=== PATIENT | male | born 1960 | race American Indian/Alaskan Native ===

== ENCOUNTER 2017-04-03 17:51 | Emergency (ER) | payer MEDICAID ==
[2017-04-03] MEDS ORDERED: Sodium Chloride 0.9% 1,000 ML IV ONE (18:43)
[2017-04-03] MEDS ORDERED: Sodium Chloride 0.9% 1,000 ML ONE (18:55)
[2017-04-03 19:08] LABS: BASO # 0.1 K/uL (0.0-0.2); BASO % 0.8 % (0.0-2.0); EOS # 0.4 K/uL (0.0-0.7); EOS % 5.6 % (0.0-4.0); HEMATOCRIT 48.6 % (35.0-51.0); LYMPH # 2.2 K/uL (1.0-4.3); LYMPH % 28.2 % (20.0-40.0); MEAN CORPUSCULAR HGB CONC 33.3 g/dL (33.0-37.0); MONO # 0.6 K/uL (0.0-0.8); MONO % 7.9 % (0.0-10.0); NRBC % 0.1 % (0.0-2.0); RED CELL DISTRIBUTION WIDTH 14.9 % (11.5-14.5); WHITE BLOOD COUNT 7.8 K/uL (4.8-10.8)
[2017-04-03 19:14] LABS: CHLORIDE 101 mmol/L (98-107); POTASSIUM 5.3 mmol/L (3.6-5.2); SODIUM 139 mmol/L (132-148)
[2017-04-03 19:16] LABS: ALB/GLOB RATIO 1.5 (1.0-2.1); AST/SGOT 16 U/L (17-59); BILIRUBIN,TOTAL 0.8 mg/dL (0.2-1.3); CARBON DIOXIDE 30 mmol/L (22-30); GFR AFRICAN-AMERICAN > 60; TOTAL PROTEIN 6.6 g/dL (6.3-8.3)
[2017-04-03 19:17] LABS: ALKALINE PHOSPHATASE 80 U/L (38-126); ALT/SGPT 19 U/L (21-72); BLOOD UREA NITROGEN 10 mg/dL (9-20); CALCIUM 9.4 mg/dl (8.6-10.4); GLUCOSE,RANDOM 87 mg/dL (75-110); MAGNESIUM 1.9 mg/dL (1.6-2.3)
[2017-04-03] MEDS ORDERED: Magnesium Sulfate 1 gm in D5W 1 GM/100 ML BAG IVPB ONE ×2 (19:56→20:03)
[2017-04-03] MEDS ORDERED: Apap-Butalbital-Caffeine 325-50-40mg Tab PO STA (19:57)
[2017-04-03 19:58] VITALS: O2SAT 98
[2017-04-03] MEDS ORDERED: Apap-Butalbital-Caffeine 325-50-40mg Tab ONE (20:03)
[2017-04-03] MEDS ORDERED: Dexamethasone 4 mg/1 ml IVP STA (21:23)
[2017-04-03] MEDS ORDERED: Enalaprilat 2.5 MG/2 ML IVP STA (21:23)
[2017-04-03 21:46] VITALS: RESP 18
[2017-04-03] MEDS ORDERED: Enalaprilat 2.5 MG/2 ML ONE (22:07)
[2017-04-03] MEDS ORDERED: Dexamethasone 4 mg/1 ml ONE (22:07)
--- NOTE | 2017-04-03 22:43 | C.PDOC ---
Time Seen by Provider: 04/03/17 18:17 Chief Complaint (Nursing): Headache History Per: Patient, Family Onset/Duration Of Symptoms: Days (about 3 weeks), Persistent Current Symptoms Are (Timing): Still Present Severity: Moderate Quality: "Pain" Associated Symptoms: Nausea Additional History Per: Prior Records Past Medical History Reviewed: Historical Data, Nursing Documentation, Vital Signs Vital Signs: Last Vital Signs Temp 97.8 F 04/03/17 20:38 Pulse 82 04/03/17 21:44 Resp 18 04/03/17 21:44 BP 113/77 04/03/17 22:17 Pulse Ox 98 04/03/17 21:44 - Medical History PMH: HTN, Migraine Family History: States: Unknown Family Hx - Social History Hx Alcohol Use: No Hx Substance Use: No - Immunization History Hx Tetanus Toxoid Vaccination: No Hx Influenza Vaccination: No Hx Pneumococcal Vaccination: No Review Of Systems Except As Marked, All Systems Reviewed And Found Negative. Constitutional: Negative for: Fever, Weakness ENT: Positive for: Ear Pain, Nose Congestion Cardiovascular: Negative for: Chest Pain Respiratory: Positive for: Cough. Negative for: Shortness of Breath, Hemoptysis Gastrointestinal: Positive for: Nausea. Negative for: Abdominal Pain Musculoskeletal: Negative for: Neck Pain Skin: Negative for: Rash Neurological: Positive for: Headache. Negative for: Weakness, Numbness, Seizures, Altered Mental Status Physical Exam - Physical Exam Appears: Non-toxic, No Acute Distress Skin: Normal Color, Warm, Dry, No Rash Head: Atraumatic, Normacephalic Eye(s): bilateral: PERRL, EOMI Ear(s): Bilateral: TM Obscured By Wax Throat: Normal Neck: Normal ROM, Supple Cardiovascular: Rhythm Regular Respiratory: Normal Breath Sounds, No Accessory Muscle Use Gastrointestinal/Abdominal: Soft, No Tenderness Back: No CVA Tenderness Extremity: Normal ROM Neurological/Psych: Oriented x3, Normal Speech, Normal Cognition, Normal Motor, Normal Sensation ED Course And Treatment - Laboratory Results Result Diagrams: 04/03/17 19:03 04/03/17 19:03 O2 Sat by Pulse Oximetry: 98 Pulse Ox Interpretation: Normal - Radiology CXR: Interpreted by Me, Viewed By Me CXR Interpretation: Yes: No Acute Disease - CT Scan/US CT head Other Rad Studies (CT/US): Read By Radiologist, Radiology Report Reviewed CT/US Interpretation: NAD Progress - Interventions Interventions:: Observation, Intravenous fluid - Medications Administered Intravenous: Antiemetic, Corticosteroid, NSAID - Data Reviewed Data Reviewed: Lab, Diagnostic imaging, Old records - Patient Status Patient status: Mostly improved - Continuity of Care Discussed patient case with:: Patient, Family-HIPPA compliant, ED Nurse - Patient Plan Patient Plan: Discharge, F/U with PCP, Continue present meds Disposition Counseled Patient/Family Regarding: Studies Performed, Diagnosis, Need For Followup, Rx Given - Disposition Disposition: HOME/ ROUTINE Disposition Time: 22:44 Condition: IMPROVED Additional Instructions: Follow up with your doctor for further evaluation and treatment. Return to the ER if you develop worsening of symptoms or if you have any other concerns. Prescriptions: Carbamide Peroxide [Debrox 15 Ml] 5 drop OT BID #1 bottle Prednisone 50 mg PO DAILY #5 tablet Instructions: General Headache (ED) - Clinical Impression Clinical Impression: Headache, Cerumen impaction
[2017-04-03 23:07] VITALS: BP 145/100; PULSE 77; TEMP 98.3
--- NOTE | 2017-04-04 08:30 | CT ---
PROCEDURE: CT HEAD WITHOUT CONTRAST. HISTORY: Headache COMPARISON: None available. TECHNIQUE: Axial computed tomography images were obtained through the head/brain without intravenous contrast. Radiation dose: Total exam DLP = 899.18 mGy-cm. This CT exam was performed using one or more of the following dose reduction techniques: Automated exposure control, adjustment of the mA and/or kV according to patient size, and/or use of iterative reconstruction technique. FINDINGS: HEMORRHAGE: No intracranial hemorrhage. BRAIN: No mass effect or edema. No atrophy or chronic microvascular ischemic changes. VENTRICLES: Unremarkable. No hydrocephalus. CALVARIUM: Unremarkable. PARANASAL SINUSES: Unremarkable as visualized. No significant inflammatory changes. MASTOID AIR CELLS: Unremarkable as visualized. No inflammatory changes. OTHER FINDINGS: None. IMPRESSION: No acute intracranial abnormalities. No significant findings to account for the clinical presentation. Concordant results (preliminary interpretation) provided by [facility]. Procedure Completed: 19:28. Preliminary ([facility]) Report: Dictated and Authenticated: 19:44. Final Interpretation: 08:28.April 04, 2017.
--- NOTE | 2017-04-04 10:33 | RAD ---
HISTORY: Cough. Portable study 18:52. COMPARISON: No prior. FINDINGS: LUNGS: No active pulmonary disease. PLEURA: No significant pleural effusion identified, no pneumothorax apparent. CARDIOVASCULAR: No radiographic findings to suggest acute or significant cardiovascular disease. OSSEOUS STRUCTURES: No significant abnormalities. VISUALIZED UPPER ABDOMEN: Normal. OTHER FINDINGS: None. IMPRESSION: No active disease.
== END 2017-04-03 23:01 | disposition home or self-care (01) ==
LOC: C.ER 17:51
DX: R51 Headache (principal); H61.23 Impacted cerumen, bilateral; I10 Essential (primary) hypertension; Z87.891 Personal history of nicotine dependence
CPT/HCPCS: 70450; 71010; 80053; 83735; 84484; 85025; 96361; 96365; 96375; 99285; J1100; J1885; J2765; J3475; J7040